=== PATIENT | male | born 1990 | race Two or more races ===

== ENCOUNTER 2024-07-13 14:26 | Outpatient (AMB) | payer OTHER, SELFPAY ==
--- NOTE | 2024-07-13 14:55 | A.OFFVIS_ITS ---
Intake Visit Reasons: Infertility/nonobstructive azoospermia(IVF) Intake Note: New patient is present for Infertility Consultation [facility] IV Referred for Infertility/Nonobstructive Azoospermia Semen analysis- 03/2024 Makeup Artist Required: No HPI Comments Details: Kenny is a pleasant 34-year-old male. He is a patient of . He presents for following urologic conditions - male infertility Accompanied by his partner Has completed evaluation with Dr. 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 In his case these are associated with poor outcomes from sperm retrieval. Recommendation for assisted reproduction with external sperm. Emphasized that sperm obtained from family members will contain highest likelihood of genetic match compared to donor sperm. Donor sperm has indeterminate rates of undisclosed chronic disease. [facility], [facility] Social History (Updated 07/13/24 @ 14:55 by NAE Espinoza) Patient Tobacco Use Status: Never used Tobacco Review of Systems Const Denies chills and Denies fever(s) Card Reports no additional complaints and Denies syncope Resp Denies cough GI Denies abdominal pain and Denies heartburn Reports as per HPI and Denies change in libido Neuro Denies syncope Psych Denies change in libido Endo Denies change in libido Physical Exam Const General: cooperative, healthy appearing, comfortable and no acute distress Orientation/consciousness: patient oriented x3 HEENT Face and sinus: Yes normal facial exam Mouth: moist mucous membranes Neck Neck: Yes normal visual inspection, Yes full ROM and Yes trachea midline Chest Chest palpation & inspection: normal inspection of the chest Resp Effort & Inspection: normal respiratory effort, able to speak in complete sentences and no respiratory distress GI Inspection: Yes normal to inspection Back/Spine/Pelvis Cervical Spine: normal cervical lordosis Thoracic/Lumbar Spine: thoracic and lumbar spine normal to inspection Skin General skin exam: no rashes or lesions noted Neuro General: patient oriented x3, gait normal, tone normal and moves all extremities Extrem General: Yes normal to inspection and Yes capillary refill normal Assessment & Plan Assessment & Plan (1) Male infertility: Code(s): N46.9 - Male infertility, unspecified Category: Medical Plan P.r.n. follow-up Recommend external sperm Patient Instructions: Imaging studies, laboratory and physical exam results were discussed and reviewed in detail. No major barriers to patient understanding were identified. An opportunity to ask questions regarding the treatment plan was provided. All questions were answered. The patient expressed understanding and agreement with the above treatment plan. The patient is aware they should contact our office by phone for worsening of their current condition or the appearance of new urologic symptoms. Compliance is encouraged with any medications and followup testing that is ordered. It is a privilege to participate in the urologic care of your patient. If you have any questions or concerns regarding treatment for the above conditions, or other urologic issues, please do not hesitate to contact me. The office telephone contact is [phone]. This note is constructed using voice recognition software. While every effort has been made to ensure accuracy weed cooking operator errors may have been included. Yours sincerely, Dr Carlos Pandya MD, [facility] - Urology Providers of Expert, Compassionate Care for the Genitourinary System Coding Level of Care Code New Pt Level 3 (60925) Diagnoses Male infertility N46.9
== END 2024-07-13 15:27 | disposition home or self-care (01) ==
PROVIDERS: PCP Physician Assistant; Visit Provider Urology
DX: N46.9 Male infertility, unspecified (principal)
CPT/HCPCS: 99203

== ENCOUNTER → 2024-07-13 14:26 | Outpatient (BNVA) | payer OTHER, SELFPAY | PROVIDERS: PCP Physician Assistant; Visit Provider Urology ==